=== PATIENT | male | born 1985 | race Two or more races ===

== ENCOUNTER 2019-09-18 00:52 | Emergency (ER) | payer OTHER ==
[~2019-09-18] VITALS: Ht 185.4 cm; Wt 116.1 kg
[2019-09-18 07:05] VITALS: BP 128/88
[2019-09-18] MEDS ORDERED: ACETAMINOPHEN/CODEINE#3 (300/30mg) TAB PO ONE (07:15)
[2019-09-18] MEDS ORDERED: METHOCARBAMOL 500 MG TAB PO ONE (07:15)
== END 2019-09-18 07:45 | disposition home or self-care (01) ==
LOC: ER 00:52
DX: S43.102A Unspecified dislocation of left acromioclavicular joint, initial encounter (principal); I10 Essential (primary) hypertension; E11.9 Type 2 diabetes mellitus without complications; V89.2XXA Person injured in unspecified motor-vehicle accident, traffic, initial encounter; Y93.89 Activity, other specified; Y92.89 Other specified places as the place of occurrence of the external cause; Y99.9 Unspecified external cause status
CPT/HCPCS: 29105; 72040; 72100; 73030